=== PATIENT | female | born 1970 | race Two or more races ===

== ENCOUNTER 2021-12-15 02:23 | Emergency (ER) | payer MEDICAID ==
[~2021-12-15] VITALS: Ht 165.1 cm; Wt 75.0 kg
[2021-12-15 02:58] LABS: COVID AG,FIA SOURCE NASAL SWAB
[2021-12-15 03:13] VITALS: BP 137/74
[2021-12-15 03:20] LABS: INFLUENZA TYPE A NEGATIVE FOR TYPE A (NEGATIVE); INFLUENZA TYPE B NEGATIVE FOR TYPE B (NEGATIVE)
[2021-12-15] MEDS ORDERED: DEXAMETHASONE 4 MG TABLET PO ONE (03:30)
== END 2021-12-15 03:52 | disposition home or self-care (01) ==
LOC: EMS 02:26
DX: J02.8 Acute pharyngitis due to other specified organisms (principal); B97.89 Other viral agents as the cause of diseases classified elsewhere
CPT/HCPCS: 87430; 87804; 99283; J8540